=== PATIENT | female | born 1940 | race Caucasian/White ===

== ENCOUNTER → 2018-02-02 | Day surgery (SDC) | payer MEDICARE, BC ==
[2018-01-31 11:15] VITALS: BMI 42.9
[~2018-02-02] MED LIST: ALPRAZolam 0.25 MG TAB PO PRN; ALPRAZolam 0.5 MG TAB PO PRN; ASPIRIN 325 MG TAB PO SCH; ASPIRIN 325 MG TAB PO STA; ATORVASTATIN 80 MG TAB PO STA; CALCIUM CITRATE PO SCH; DILTIAZEM HCL 360 MG PO SCH; EZETIMIBE 10 MG TAB PO SCH; HEPARIN SODIUM 1,000 UN/ML (10ML VL) IV ONE; HEPARIN SODIUM 1,000 UN/ML (10ML VL) ONE; HYDROCHLOROTHIAZIDE PO SCH; IODIXANOL 320 MG/ML 100 ML INTRAARTER ONE; ISOSORBIDE MONONITRATE ER 30 MG TAB.ER.24H PO SCH; Insulin Aspart (For Pump) 100 UNIT/ML VIAL SQ-PUMP SCH; LIDOCAINE 2% INJ 20 MG/ML (20 ML MDV) ONE; LIDOCAINE 2% INJ 20 MG/ML SQ ONE; LOSARTAN PO SCH; MULTIVITAMINS, THERA 1 EACH TAB PO SCH; NITROGLYCERIN SL TABS 0.4 MG TAB SUBLINGUAL PRN; NON-FORMULARY DRUG (Omega-3 Fatty Acids/Fish Oil [Fish Oil 1,000 Mg Softgel] 1 EACH) PO SCH; NON-FORMULARY DRUG (Vitamin E [Vitamin E] 1,000 UNIT) PO SCH; PRAVASTATIN SODIUM 40 MG TAB PO SCH; RX INFO: IV CONTRAST WAS GIVEN 1 EACH MISC MISCELLANE PRN; SODIUM CHLORIDE 0.9% 1,000 ML IV SCH; SODIUM CHLORIDE 0.9% 1,000 ML in EMPTY BAG 1 BAG IV ONE; VERAPAMIL 2.5 MG/ML 2 ML AMP ONE; VITAMIN D3 PO SCH; cloNIDine HCL 0.1 MG TAB PO SCH; fentaNYL (PF) 50 MCG/ML 2 ML AMP IV ONE; fentaNYL (PF) 50 MCG/ML 2 ML AMP ONE
[2018-02-02 07:05] VITALS: TEMP 98.1
[2018-02-02 07:34] LABS: Glucose,Whole Blood 185 mg/dL (75-99)
[2018-02-02] MEDS: VERAPAMIL SYRINGE (5 MG/10 ML) INTRAARTER ONE ×2 (07:34→08:10)
[2018-02-02 07:39] LABS: Basophils # (A) 0.1 k/uL (0-0.2); Basophils % (A) 1 %; Eosinophils # (A) 0.4 k/uL (0-0.7); Eosinophils % (A) 6 %; HGB 15.3 gm/dL (11.4-16.0); Lymphocytes # (A) 2.9 k/uL (1.0-4.8); Lymphocytes % (A) 40 %; MCH 32.9 pg (25.0-35.0); MCHC 34.8 g/dL (31.0-37.0); MCV 94.7 fL (80.0-100.0); Monocytes # (A) 0.5 k/uL (0-1.0); Monocytes % (A) 7 %; Neutrophils # (A) 3.2 k/uL (1.3-7.7); Neutrophils % (A) 44 %; Platelet Count 207 k/uL (150-450); RBC 4.65 m/uL (3.80-5.40); RDW 12.6 % (11.5-15.5); WBC 7.2 k/uL (3.8-10.6)
[2018-02-02 07:51] LABS: Calcium 9.7 mg/dL (8.4-10.2); Potassium 3.9 mmol/L (3.5-5.1)
--- NOTE | 2018-02-02 09:35 | CC ---
CARDIAC CATHETERIZATION REPORT Mrs Gilman is a 77-year-old female with known history of coronary artery disease, hypertension, hyperlipidemia, diabetes mellitus, who has been complaining of progressive dyspnea on exertion. Underwent myocardial perfusion imaging that showed evidence of anterior wall ischemia. In view of that, recommendation made regarding cardiac catheterization. The procedure as well as risks and complications were discussed with the patient who is in full understanding and agreement. PROCEDURE: Patient was brought to the bolt labeler in fasting semi-sedated state after receiving fentanyl and Benadryl and achieving moderate conscious sedated state. Using Xylocaine anesthesia in the Seldinger technique, a 6-Citizen [place] sheath was introduced in the right radial artery. Left coronary angiography was performed using care 5-[place]izen [place], 3.5 bend left Syl catheter. Attempts to cannulate the right coronary artery using a 5- [place] 3.5 bend right, 4 bend right were unsuccessful. Following that, left ventriculogram was performed using a 5-[place]izen [place] tight pigtail catheter and RICKY view of the ascending aorta was performed. Following that, the attempt to cannulate the right coronary artery using a 6-[place]izen [place] Yang and subsequently a 6-[place]izen [place] MP 2 catheter that was successful in cannulating the right coronary artery. Multiple images of the coronary artery including hemiaxial views were obtained. Following that, the catheter and sheaths were removed. Hemostasis was obtained with deployment of a TR band. There was no immediate complication. Patient is returned to her room in stable condition. Of note, the patient received 5000 units of intravenous heparin as well as intra - arterial verapamil. FINDINGS: FLUOROSCOPY: There was severe calcification involving the left anterior descending artery, left circumflex and the left main. LEFT MAIN: This is a short size vessel bifurcating in left circumflex and left anterior descending artery. The left main coronary artery has no evidence of high-grade stenosis. LEFT ANTERIOR DESCENDING ARTERY: This is a large-sized vessel reaching to the apex with a wraparound apex segment giving rise to a moderately sized diagonal branch. After the takeoff of the diagonal branch, there is an eccentric 30% to 40% plaque. The rest of the vessel has no high-grade stenosis LEFT CIRCUMFLEX: This is a large codominant vessel, bifurcating distally in PDA and posterolateral segment and branches. The left circumflex has no evidence of high-grade stenosis RIGHT CORONARY ARTERY: This is a moderate-sized codominant vessel bifurcating distally PDA and posterolateral segments and branches. The right coronary artery in the mid segment has a 30% plaque as well as another plaque in the proximal segment. The rest of the vessel has no high-grade stenosis. LEFT VENTRICULOGRAM: Left ventriculogram is performed in 30-degree MISTRY view and revealed normal left ventricular size and systolic function. Ejection fraction is 60%. There was no significant mitral regurgitation. AORTOGRAM: Aortogram was performed in the RICKY view and revealed a tricuspid aortic valve with no significant aortic regurgitation. CONCLUSION: 1. Calcified coronary arteries. 2. Mild disease involving the left anterior descending artery and the right coronary artery. 3. Codominant system. RECOMMENDATION: In view of finding anatomy, I recommend continue medical therapy with aggressive coronary risk modifications that have been initiated. Those findings and recommendation were discussed with the patient and her family who are in full understanding and agreement. Duration of procedure 55 minutes. ADIEL / DEJAH: [id number] / MTDD
--- NOTE | 2018-02-02 09:37 | LTR ---
February 02, 2018 Re: Reba Gilman Dear Dr. Jhaveri: I had the opportunity to perform cardiac catheterization on Mrs. Gilman at [facility] on the and a full copy of the procedure note will be forwarded to you. In brief, she was found to have mild coronary artery disease involving the LAD and the right coronary artery and in view of that, I have recommended continued medical therapy with aggressive coronary risk modifications that have been initiated. Thank you again for allowing me the opportunity to participate in her care. Please feel free to call for any questions. Sincerely yours, MD ALEJO TrinidadL / IDALMISN: [id number] /
[2018-02-02 10:01] VITALS: PULSE 68; RESP 18
[2018-02-02 11:46] VITALS: BP 148/67
== END | disposition home or self-care (01) ==
LOC: CATHCVL 06:29
PROVIDERS: ATTEND Internal Medicine Interventional Cardiology
DX: I25.10 Atherosclerotic heart disease of native coronary artery without angina pectoris (principal); I25.84 Coronary atherosclerosis due to calcified coronary lesion; I10 Essential (primary) hypertension; E78.2 Mixed hyperlipidemia; E11.9 Type 2 diabetes mellitus without complications; Z79.4 Long term (current) use of insulin; Z96.41 Presence of insulin pump (external) (internal); Z82.49 Family history of ischemic heart disease and other diseases of the circulatory system; Z79.82 Long term (current) use of aspirin; Z79.899 Other long term (current) drug therapy; Z88.0 Allergy status to penicillin; Z88.8 Allergy status to other drugs, medicaments and biological substances
CPT/HCPCS: 93458; 93567; 80048; 85025; C1894; C1769; J2001; Q9967; J3010; J1644

== ENCOUNTER 2023-11-30 20:48 | Inpatient (IN) | payer MEDICARE, BC ==
--- NOTE | 2023-11-30 22:10 | ED ---
Arrhythmia/Palpitations HPI - General Chief Complaint: Arrhythmia/Palpitations Stated Complaint: Afib Time Seen by Provider: 11/30/23 21:07 Source: EMS Mode of arrival: EMS Limitations: no limitations - History of Present Illness Initial Comments: 82-year-old female presents emergency department as a transfer from [facility]. States that she went into the facility there for shortness of breath. She has had increased weight gain and lower extremity swelling. She called her client engagement specialist Dr. Heredia who had increased her hydrochlorothiazide. States she has been taking the higher dose for the past 2 weeks but continues to be short of breath. She also reports that she felt very weak and chilled. At [facility] they found that the patient had pulmonary vascular congestion on her chest x- ray. They gave her a dose of Lasix and Solu-Medrol. An EKG possibly demonstrated A-fib however the patient converted while at their facility according to the transferring physician. Patient transferred here for cardiology. Upon evaluation the patient states she has urinated almost 2 L. She denies any chest pain. No cough. No other alleviating, precipitating or modifying factors - Related Data Home Medications Medication Instructions Recorded Confirmed Ezetimibe 10 mg PO DAILY 01/31/18 11/30/23 Insulin Aspart (For Pump) [NovoLOG 0.01 unit SQ-PUMP CONTINUOUS 01/31/18 11/30/23 (For Pump)] Isosorbide Mononitrate ER [Imdur] 30 mg PO DAILY 01/31/18 11/30/23 Pravastatin Sodium [Pravachol] 40 mg PO HS 01/31/18 11/30/23 dilTIAZem HCL [dilTIAZem HCL 24Hr 360 mg PO DAILY 01/31/18 11/30/23 ER (LA)] Acetaminophen [Tylenol 8 Hour] 650 mg PO Q8H PRN 11/30/23 11/30/23 Aspirin EC [Ecotrin Low Dose] 81 mg PO HS 11/30/23 11/30/23 Losartan Potassium 100 mg PO DAILY 11/30/23 11/30/23 hydrALAZINE HCL [Apresoline] 100 mg PO TID 11/30/23 11/30/23 Previous Rx's Medication Instructions Recorded Furosemide [Lasix] 60 mg PO DAILY #50 tablet 12/04/23 cloNIDine HCL [Catapres] 0.2 mg PO BID #60 tablet 12/04/23 Allergies Allergy/AdvReac Type Severity Reaction Status Date / Time Penicillins Allergy Rash/Hives Verified 11/30/23 22:06 nifedipine [From Procardia] AdvReac Nausea and Verified 11/30/23 22:06 headaches Review of Systems ROS Statement: Those systems with pertinent positive or pertinent negative responses have been documented in the HPI. ROS Other: All systems not noted in ROS Statement are negative. Past Medical History Past Medical History: Diabetes Mellitus, Hyperlipidemia, Hypertension, O steoarthritis (OA), Sleep Apnea/CPAP/BIPAP Additional Past Medical History / Comment(s): pt has cpap History of Any Multi-Drug Resistant Organisms: None Reported Past Surgical History: Cholecystectomy, Heart Catheterization, Joint Replacement Additional Past Surgical History / Comment(s): yary knee replacement, cytocele and rectocele repair, yary carpal tunnel, rt shoulder surgery Past Anesthesia/Blood Transfusion Reactions: Motion Sickness, Postoperative Nausea & Vomiting (PONV) Past Psychological History: No Psychological Hx Reported Past Alcohol Use History: None Reported Past Drug Use History: None Reported - Past Family History Mother Family Medical History: No Reported History General Exam Limitations: no limitations General appearance: alert, in no apparent distress Head exam: Present: atraumatic, normocephalic, normal inspection Eye exam: Present: normal appearance, PERRL, EOMI. Absent: scleral icterus, conjunctival injection, periorbital swelling ENT exam: Present: normal exam, mucous membranes moist Neck exam: Present: normal inspection. Absent: tenderness, meningismus, lymphadenopathy Respiratory exam: Present: decreased breath sounds. Absent: respiratory distress, wheezes, rales, rhonchi, stridor Cardiovascular Exam: Present: regular rate, normal rhythm, normal heart sounds. Absent: systolic murmur, diastolic murmur, rubs, gallop, clicks GI/Abdominal exam: Present: soft, normal bowel sounds. Absent: distended, tenderness, guarding, rebound, rigid Extremities exam: Present: full ROM, normal capillary refill, pedal edema. Absent: tenderness, joint swelling, calf tenderness Back exam: Present: normal inspection Neurological exam: Present: alert, oriented X3, CN II-XII intact Psychiatric exam: Present: normal affect, normal mood Skin exam: Present: warm, dry, intact, normal color. Absent: rash Course Vital Signs 11/30/23 11/30/23 11/30/23 20:51 21:12 21:30 Temperature 98.2 F Pulse Rate 80 75 Pulse Rate [ 80 Explosive Operator Supervisor ] Respiratory 18 19 Rate Blood Pressure 203/71 187/109 Blood Pressure [Right Arm] O2 Sat by Pulse 97 97 Oximetry 11/30/23 11/30/23 11/30/23 22:11 23:10 23:57 Temperature 98.2 F Pulse Rate 79 76 71 Pulse Rate [ Explosive Operator Supervisor ] Respiratory 21 16 16 Rate Blood Pressure 199/75 167/78 170/66 Blood Pressure [Right Arm] O2 Sat by Pulse 97 98 97 Oximetry 12/01/23 12/01/23 12/01/23 01:49 04:04 05:43 Temperature 98.1 F Pulse Rate 69 69 71 Pulse Rate [ Explosive Operator Supervisor ] Respiratory 16 16 16 Rate Blood Pressure 148/76 151/71 151/71 Blood Pressure [Right Arm] O2 Sat by Pulse 96 96 95 Oximetry 12/01/23 12/01/23 12/01/23 07:59 14:19 15:58 Temperature 98.4 F 98.2 F Pulse Rate 64 Pulse Rate [ 80 67 Explosive Operator Supervisor ] Respiratory 16 16 18 Rate Blood Pressure 135/59 Blood Pressure 149/69 119/45 [Right Arm] O2 Sat by Pulse 96 96 97 Oximetry 12/01/23 20:53 Temperature 98.2 F Pulse Rate Pulse Rate [ 72 Explosive Operator Supervisor ] Respiratory 16 Rate Blood Pressure Blood Pressure 143/55 [Right Arm] O2 Sat by Pulse 96 Oximetry Medical Decision Making - Medical Decision Making Was pt. sent in by a medical professional or institution (, PA, RAVELER, urgent care, hospital, or usp...) When possible be specific @ -[facility] Did you speak to anyone other than the patient for history (EMS, parent, family, police, friend...)? What history was obtained from this source @ -EMS Did you review nursing and triage notes (agree or disagree)? Why? @ -I reviewed and agree with nursing and triage notes Were old charts reviewed (outside hosp., previous admission, EMS record, old EKG, old radiological studies, urgent care reports/EKG's, usp records)? Report findings @ -I reviewed patients chart from [facility] Differential Diagnosis (chest pain, altered mental status, abdominal pain women, abdominal pain men, vaginal bleeding, weakness, fever, dyspnea, syncope, headache, dizziness, GI bleed, back pain, seizure, CVA, palpatations, mental health, musculoskeletal)? @ -Differential Dyspnea: Coronary syndrome, arrhythmia, tamponade, asthma, COPD, pulmonary embolism, pneumonia, pneumothorax, pulmonary effusion, anaphylaxis, diabetic ketoacidosis, flailed chest, pulmonary contusion, diaphragmatic rupture, anemia, neuromuscular, this is not meant to be an all-inclusive list. EKG interpreted by me (3pts min.). @ -Yes and demonstrates sinus rhythm with a rate of 81. PA interval 213. QRS 109. QTc of 353. No acute ST segment elevations or depressions X-rays interpreted by me (1pt min.). @ -Completed at outside facility CT interpreted by me (1pt min.). @ -None done U/S interpreted by me (1pt. min.). @ -None done What testing was considered but not performed or refused? (CT, X-rays, U/S, labs)? Why? @ -None What meds were considered but not given or refused? Why? @ -None Did you discuss the management of the patient with other professionals (professionals i.e. , PA, RAVELER, lab, RT, psych nurse, social services assistant, agronomy teacher, teacher, unarmed security officer, patient case coordinator)? Give summary @ -Dr. Stevens for admission Was smoking cessation discussed for >3mins.? @ -No Was critical care preformed (if so, how long)? @ -No Were there social determinants of health that impacted care today? How? (Homelessness, low income, unemployed, alcoholism, drug addiction, transportation, low edu. Level, literacy, decrease access to med. care, nursing home, rehab)? @ -No Was there de-escalation of care discussed even if they declined (Discuss DNR or withdrawal of care, Hospice)? DNR status @ -No What co-morbidities impacted this encounter? (DM, HTN, Smoking, COPD, CAD, Cancer, CVA, ARF, Chemo, Hep., AIDS, mental health diagnosis, sleep apnea, morbid obesity)? @ -chf Was patient admitted / discharged? Hospital course, mention meds given and route, prescriptions, significant lab abnormalities, going to OR and other pertinent info. @ -Upon arrival patient was placed into room 11. Thorough history and physical exam was performed. I did review the patient's transfer packet. New laboratory studies are conducted. Patient will be admitted with cardiology consultation. Spoke with Dr. Stevens for admission Undiagnosed new problem with uncertain prognosis? @ -No Drug Therapy requiring intensive monitoring for toxicity (Heparin, Nitro, Insulin, Cardizem)? @ -No Were any procedures done? @ -No Diagnosis/symptom? @ -acute respiratory insuff, aechf, possible afib - currently NSR Acute, or Chronic, or Acute on Chronic? @ -acute Uncomplicated (without systemic symptoms) or Complicated (systemic symptoms)? @ -complicated Side effects of treatment? @ -No Exacerbation, Progression, or Severe Exacerbation? @ -No Poses a threat to life or bodily function? How? (Chest pain, [place], [place], pneumonia, PE, COPD, DKA, ARF, appy, cholecystitis, CVA, Diverticulitis, Homicidal, Suicidal, threat to staff... and all critical care pts) @ -No - Lab Data Result diagrams: 12/01/23 03:28 12/04/23 04:46 Lab Results 11/30/23 11/30/23 11/30/23 Range/Units 22:00 22:00 22:00 WBC 8.8 (3.8-10.6) k/uL RBC 4.96 (3.80-5.40) m/uL Hgb 16.9 H (11.4-16.0) gm/dL Hct 48.3 H (34.0-46.0) % MCV 97.3 (80.0-100.0) fL MCH 34.1 (25.0-35.0) pg MCHC 35.1 (31.0-37.0) g/dL RDW 12.3 (11.5-15.5) % Plt Count 202 (150-450) k/uL MPV 7.9 Neutrophils % 88 % Lymphocytes % 10 % Monocytes % 2 % Eosinophils % 0 % Basophils % 0 % Neutrophils # 7.7 (1.3-7.7) k/uL Lymphocytes # 0.8 L (1.0-4.8) k/uL Monocytes # 0.1 (0-1.0) k/uL Eosinophils # 0.0 (0-0.7) k/uL Basophils # 0.0 (0-0.2) k/uL Sodium 130 L (137-145) mmol/L Potassium 3.5 (3.5-5.1) mmol/L Chloride 98 (98-107) mmol/L Carbon Dioxide 20 L (22-30) mmol/L Anion Gap 12 mmol/L BUN 13 (7-17) mg/dL Creatinine 0.57 (0.52-1.04) mg/dL Est GFR (CKD-EPI)AfAm >90 (>60 ml/min/1.73 sqM) Est GFR (CKD-EPI)NonAf 88 (>60 ml/min/1.73 sqM) Glucose 183 H (74-99) mg/dL POC Glucose (mg/dL) (70-110) mg/dL POC Glu Truck Shop Mechanic ID Calcium 10.3 H (8.4-10.2) mg/dL Magnesium 1.6 (1.6-2.3) mg/dL Total Bilirubin 1.0 (0.2-1.3) mg/dL AST 40 H (14-36) U/L ALT 34 (4-34) U/L Alkaline Phosphatase 79 (38-126) U/L Troponin I 0.020 (0.000-0.034) ng/mL NT-Pro-B Natriuret Pep 409 pg/mL Total Protein 8.0 (6.3-8.2) g/dL Albumin 4.8 (3.5-5.0) g/dL 12/01/23 12/01/23 12/01/23 Range/Units 01:06 03:28 03:28 WBC 6.6 (3.8-10.6) k/uL RBC 4.80 (3.80-5.40) m/uL Hgb 15.8 (11.4-16.0) gm/dL Hct 47.1 H (34.0-46.0) % MCV 98.1 (80.0-100.0) fL MCH 32.9 (25.0-35.0) pg MCHC 33.6 (31.0-37.0) g/dL RDW 12.2 (11.5-15.5) % Plt Count 191 (150-450) k/uL MPV 7.4 Neutrophils % 79 % Lymphocytes % 19 % Monocytes % 1 % Eosinophils % 0 % Basophils % 0 % Neutrophils # 5.2 (1.3-7.7) k/uL Lymphocytes # 1.3 (1.0-4.8) k/uL Monocytes # 0.1 (0-1.0) k/uL Eosinophils # 0.0 (0-0.7) k/uL Basophils # 0.0 (0-0.2) k/uL Sodium (137-145) mmol/L Potassium (3.5-5.1) mmol/L Chloride (98-107) mmol/L Carbon Dioxide (22-30) mmol/L Anion Gap mmol/L BUN (7-17) mg/dL Creatinine (0.52-1.04) mg/dL Est GFR (CKD-EPI)AfAm (>60 ml/min/1.73 sqM) Est GFR (CKD-EPI)NonAf (>60 ml/min/1.73 sqM) Glucose (74-99) mg/dL POC Glucose (mg/dL) (70-110) mg/dL POC Glu Truck Shop Mechanic ID Calcium (8.4-10.2) mg/dL Magnesium (1.6-2.3) mg/dL Total Bilirubin (0.2-1.3) mg/dL AST (14-36) U/L ALT (4-34) U/L Alkaline Phosphatase (38-126) U/L Troponin I 0.021 0.020 (0.000-0.034) ng/mL NT-Pro-B Natriuret Pep pg/mL Total Protein (6.3-8.2) g/dL Albumin (3.5-5.0) g/dL 12/01/23 12/01/23 Range/Units 03:28 09:03 WBC (3.8-10.6) k/uL RBC (3.80-5.40) m/uL Hgb (11.4-16.0) gm/dL Hct (34.0-46.0) % MCV (80.0-100.0) fL MCH (25.0-35.0) pg MCHC (31.0-37.0) g/dL RDW (11.5-15.5) % Plt Count (150-450) k/uL MPV Neutrophils % % Lymphocytes % % Monocytes % % Eosinophils % % Basophils % % Neutrophils # (1.3-7.7) k/uL Lymphocytes # (1.0-4.8) k/uL Monocytes # (0-1.0) k/uL Eosinophils # (0-0.7) k/uL Basophils # (0-0.2) k/uL Sodium 129 L (137-145) mmol/L Potassium 3.6 (3.5-5.1) mmol/L Chloride 98 (98-107) mmol/L Carbon Dioxide 24 (22-30) mmol/L Anion Gap 7 mmol/L BUN 15 (7-17) mg/dL Creatinine 0.60 (0.52-1.04) mg/dL Est GFR (CKD-EPI)AfAm >90 (>60 ml/min/1.73 sqM) Est GFR (CKD-EPI)NonAf 87 (>60 ml/min/1.73 sqM) Glucose 210 H (74-99) mg/dL POC Glucose (mg/dL) 195 H (70-110) mg/dL POC Glu Truck Shop Mechanic ID [place] Calcium 10.1 (8.4-10.2) mg/dL Magnesium (1.6-2.3) mg/dL Total Bilirubin (0.2-1.3) mg/dL AST (14-36) U/L ALT (4-34) U/L Alkaline Phosphatase (38-126) U/L Troponin I (0.000-0.034) ng/mL NT-Pro-B Natriuret Pep pg/mL Total Protein (6.3-8.2) g/dL Albumin (3.5-5.0) g/dL Disposition Clinical Impression: CHF exacerbation, Hyponatremia, Hypertension Disposition: ADMITTED IP TO THIS HOSP Condition: Good Is patient prescribed a controlled substance at d/c from ED?: No Time of Disposition: 22:40 Decision to Admit Reason: Admit from EC Decision Date: 11/30/23 Decision Time: 22:40
[2023-11-30 22:11] LABS: Basophils % (A) 0 %; Eosinophils % (A) 0 %; HCT 48.3 % (34.0-46.0); HGB 16.9 gm/dL (11.4-16.0); Lymphocytes # (A) 0.8 k/uL (1.0-4.8); Lymphocytes % (A) 10 %; MCH 34.1 pg (25.0-35.0); MCHC 35.1 g/dL (31.0-37.0); MCV 97.3 fL (80.0-100.0); Mean Platelet Volume 7.9; Monocytes # (A) 0.1 k/uL (0-1.0); Monocytes % (A) 2 %; Neutrophils # (A) 7.7 k/uL (1.3-7.7); Neutrophils % (A) 88 %; Platelet Count 202 k/uL (150-450); RBC 4.96 m/uL (3.80-5.40); RDW 12.3 % (11.5-15.5); WBC 8.8 k/uL (3.8-10.6)
[2023-11-30 22:20] LABS: ALT 34 U/L (4-34); African American GFR (CKD) >90 (>60 ml/min/1.73 sqM); Albumin 4.8 g/dL (3.5-5.0); Anion Gap 12 mmol/L; Blood Urea Nitrogen 13 mg/dL (7-17); Calcium 10.3 mg/dL (8.4-10.2); Carbon Dioxide 20 mmol/L (22-30); Chloride 98 mmol/L (98-107); Glucose 183 mg/dL (74-99); Non-African American GFR(CKD) 88 (>60 ml/min/1.73 sqM); Sodium 130 mmol/L (137-145)
[2023-11-30 22:21] LABS: AST 40 U/L (14-36); Alkaline Phosphatase 79 U/L (38-126); Magnesium 1.6 mg/dL (1.6-2.3); Potassium 3.5 mmol/L (3.5-5.1)
[2023-11-30 22:29] LABS: NT-Pro-B-Type Natriuretic Pept 409 pg/mL
[2023-11-30] MEDS ORDERED: NALOXONE 0.4 MG/ML 1 ML VIAL IV PRN (22:42)
[2023-11-30] MEDS ORDERED: ACETAMINOPHEN TAB 325 MG TAB PO PRN (22:49)
[2023-11-30] MEDS: Insulin Aspart (For Pump) 100 UNIT/ML VIAL SQ-PUMP SCH (23:12)
[2023-11-30] MEDS: hydrALAZINE HCL 50 MG TAB PO SCH (23:15)
[2023-11-30] MEDS: PRAVASTATIN SODIUM 40 MG TAB PO SCH (23:15)
[2023-11-30] MEDS: cloNIDine HCL 0.1 MG TAB PO SCH (23:15)
[2023-11-30] MEDS: ASPIRIN 81 MG PO SCH (23:16)
[2023-12-01 03:55] LABS: African American GFR (CKD) >90 (>60 ml/min/1.73 sqM); Anion Gap 7 mmol/L; Blood Urea Nitrogen 15 mg/dL (7-17); Calcium 10.1 mg/dL (8.4-10.2); Carbon Dioxide 24 mmol/L (22-30); Chloride 98 mmol/L (98-107); Glucose 210 mg/dL (74-99); Non-African American GFR(CKD) 87 (>60 ml/min/1.73 sqM); Potassium 3.6 mmol/L (3.5-5.1); Sodium 129 mmol/L (137-145)
[2023-12-01 03:58] LABS: Basophils % (A) 0 %; Eosinophils % (A) 0 %; HCT 47.1 % (34.0-46.0); HGB 15.8 gm/dL (11.4-16.0); Lymphocytes # (A) 1.3 k/uL (1.0-4.8); Lymphocytes % (A) 19 %; MCH 32.9 pg (25.0-35.0); MCHC 33.6 g/dL (31.0-37.0); MCV 98.1 fL (80.0-100.0); Mean Platelet Volume 7.4; Monocytes # (A) 0.1 k/uL (0-1.0); Monocytes % (A) 1 %; Neutrophils # (A) 5.2 k/uL (1.3-7.7); Neutrophils % (A) 79 %; Platelet Count 191 k/uL (150-450); RDW 12.2 % (11.5-15.5); WBC 6.6 k/uL (3.8-10.6)
[2023-12-01] MEDS: ISOSORBIDE MONONITRATE ER 30 MG TAB.ER.24H PO SCH (08:27)
[2023-12-01] MEDS: DILTIAZEM CD 180 MG CAP.ER.24H PO SCH (08:27)
[2023-12-01] MEDS: hydrALAZINE HCL 50 MG TAB PO SCH ×3 (08:27→20:55)
[2023-12-01] MEDS: cloNIDine HCL 0.1 MG TAB PO SCH ×2 (08:28→20:55)
[2023-12-01] MEDS: FUROSEMIDE 10 MG/ML 10 ML VIAL IV SCH ×2 (08:28→20:55)
[2023-12-01] MEDS: EZETIMIBE 10 MG TAB PO SCH (08:28)
[2023-12-01] MEDS: LOSARTAN 50 MG TAB PO SCH (08:28)
[2023-12-01 09:05] LABS: Glucose,Whole Blood 195 mg/dL (70-110)
[2023-12-01] MEDS: ENOXAPARIN 40 MG/0.4 ML SYRINGE SQ SCH (11:23)
--- NOTE | 2023-12-01 11:29 | P.CRDCN ---
History of Present Illness Consult date: 12/01/23 Consult reason: congestive heart failure (Acute exacerbation) History of present illness: History of present illness: This is an 89-year-old female patient of Dr. Heredia with past medical history of coronary artery disease, hypertension, subclavian artery stenosis, hyperlipidemia, diabetes mellitus type 2, obstructive sleep apnea on CPAP. We have been asked to evaluate the patient for acute exacerbation of CHF. Patient is seen today in the emergency center waiting for a bed on the observation unit. Patient initially presented to [facility] for shortness of breath with weight gain and lower extremity edema. She states that she had been in contact with Dr. Heredia and he had increased her hydrochlorothiazide 2 weeks ago but she has not had any significant improvement and also feels like she is getting worse with shortness of breath. She states she has gained 11 pounds. At [facility], she was given IV Lasix and IV Solu-Medrol. Patient states that she did have a significant amount of urination and helped some with her breathing. She states she has a little bit of a cough. No fever or chills. Chest x-ray showed cardiomegaly and CHF. EKG was a sinus rhythm. EKG sinus rhythm CBC is unremarkable. Sodium 129. Potassium 3.6, BUN 15 creatinine 0.6. Blood sugar 210. Troponin negative x 3. proBNP 409. Home cardiac medications: Aspirin 81 mg daily, Catapres 0.1 mg twice daily, Cardizem ER 360 mg daily,, Zetia 10 mg daily, hydralazine 100 mg 3 times daily, hydrochlorothiazide 50 mg daily, Imdur 30 mg daily, losartan 100 mg daily, pravastatin 40 mg at bedtime Cardiac catheterization performed 02/02 2018 revealed calcified coronary arteries with mild disease in the LAD and RCA. Echocardiogram performed on 05/21/2022 revealed EF of 52%, mild to moderate TR, mild , mild to moderate MR, RVSP 53 mmHg. Lexiscan stress test performed 05/21/2022 revealed EF 58% and normal. Review Of Systems: At the time of my evaluation: Constitutional: No fever, no chills. No weakness, fatigue or lethargy. + weight gain. EENT: No headache. No dizziness. Lungs: + shortness of breath, + cough, no sputum production. No wheezing. Cardiovascular: No chest pain, + lower extremity edema. No palpitations. No paroxysmal nocturnal dyspnea. No orthopnea. No lightheadedness or dizziness. No syncopal episodes. Abdominal: No abdominal pain. No nausea, vomiting. No diarrhea. No constipation. No bloody or tarry stools. Genitourinary: No dysuria.. No urinary retention. Musculoskeletal: No myalgias. No muscle weakness, no frequent falls. Integumentary: No wounds. No rash. No unusual bruising. Neurologic: No aphasia. No facial droop. No change in mentation. Physical examination: Gen: This is a morbidly obese 89-year-old female appears to be in no acute distress VS: reviewed blood pressure 151/71, heart rate in the 60s to 70s, pulse ox 95% on 2 L nasal cannula. HEENT: Head is atraumatic, normocephalic. Pupils equal, round. Sclerae is anicteric. NECK: Supple. No JVD. . LUNGS: Diminished breath sounds. No intercostal retractions. HEART: Regular rate and rhythm. 2/6 sytolic murmur. ABDOMEN: Soft No tenderness. EXTREMITIES: 3+ pedal edema. No calf tenderness. NEUROLOGICAL: Patient is awake, alert and oriented x3. Assessment: Acute diastolic heart failure Hyponatremia History of coronary artery disease Hypertension Subclavian artery stenosis on medical management status post evaluation by Dr. Bustos Hyperlipidemia Diabetes mellitus type 2 Obstructive sleep apnea Valvular heart disease with mild AAS, mild to moderate MR, mild to moderate TR Plan: Resume patient's home cardiac medications Continue Lasix IV 60 mg twice daily Monitor SHELLY, daily weights, electrolytes and renal function Obtain 2-D echocardiogram and Doppler study to assess cardiac structure and function Further recommendations to follow based upon clinical course Thank you kindly for this consultation. Nurse practitioner note has been reviewed, I agree with documented findings and plan of care. Patient was seen and examined. Past Medical History Past Medical History: Diabetes Mellitus, Hyperlipidemia, Hypertension, Osteoarthritis (OA), Sleep Apnea/CPAP/BIPAP Additional Past Medical History / Comment(s): pt has cpap History of Any Multi-Drug Resistant Organisms: None Reported Past Surgical History: Cholecystectomy, Heart Catheterization, Joint Replacement Additional Past Surgical History / Comment(s): yary knee replacement, cytocele and rectocele repair, yary carpal tunnel, rt shoulder surgery Past Anesthesia/Blood Transfusion Reactions: Motion Sickness, Postoperative Nausea & Vomiting (PONV) Past Psychological History: No Psychological Hx Reported Past Alcohol Use History: None Reported Past Drug Use History: None Reported - Past Family History Mother Family Medical History: No Reported History Medications and Allergies Home Medications Medication Instructions Recorded Confirmed Type Ezetimibe 10 mg PO DAILY 01/31/18 11/30/23 History Insulin Aspart (For Pump) [NovoLOG 0.01 unit SQ-PUMP CONTINUOUS 01/31/18 11/30/23 History (For Pump)] Isosorbide Mononitrate ER [Imdur] 30 mg PO DAILY 01/31/18 11/30/23 History Pravastatin Sodium [Pravachol] 40 mg PO HS 01/31/18 11/30/23 History cloNIDine HCL [Catapres] 0.1 mg PO BID 01/31/18 11/30/23 History dilTIAZem HCL [Diltiazem ER] 360 mg PO DAILY 01/31/18 11/30/23 History Acetaminophen [Tylenol 8 Hour] 650 mg PO Q8H PRN 11/30/23 11/30/23 History Aspirin EC [Ecotrin Low Dose] 81 mg PO HS 11/30/23 11/30/23 History Losartan Potassium 100 mg PO DAILY 11/30/23 11/30/23 History hydrALAZINE HCL [Apresoline] 100 mg PO TID 11/30/23 11/30/23 History hydroCHLOROthiazide [Hydrodiuril] 50 mg PO DAILY 11/30/23 11/30/23 History Allergies Allergy/AdvReac Type Severity Reaction Status Date / Time Penicillins Allergy Rash/Hives Verified 11/30/23 22:06 nifedipine [From Procardia] AdvReac Nausea and Verified 11/30/23 22:06 headaches Physical Exam Vitals: Vital Signs Temp Pulse Pulse Resp BP Pulse Ox 12/01/23 05:43 98.1 F 71 16 151/71 95 12/01/23 04:04 69 16 151/71 96 12/01/23 01:49 69 16 148/76 96 11/30/23 23:57 71 16 170/66 97 11/30/23 23:10 98.2 F 76 16 167/78 98 11/30/23 22:11 79 21 199/75 97 11/30/23 21:30 75 19 187/109 97 11/30/23 21:12 80 11/30/23 20:51 98.2 F 80 18 203/71 97 Intake and Output 11/30/23 12/01/23 12/01/23 22:59 06:59 14:59 Output Total 950 Balance -950 Output: Urine 950 Uretheral (Call) 950 Other: Weight 123.831 kg Results 12/01/23 03:28 12/01/23 03:28 Cardiac Enzymes 11/30/23 11/30/23 12/01/23 Range/Units 22:00 22:00 01:06 AST 40 H (14-36) U/L Troponin I 0.020 0.021 (0.000-0.034) ng/mL 12/01/23 Range/Units 03:28 AST (14-36) U/L Troponin I 0.020 (0.000-0.034) ng/mL CBC 11/30/23 12/01/23 Range/Units 22:00 03:28 WBC 8.8 6.6 (3.8-10.6) k/uL RBC 4.96 4.80 (3.80-5.40) m/uL Hgb 16.9 H 15.8 (11.4-16.0) gm/dL Hct 48.3 H 47.1 H (34.0-46.0) % Plt Count 202 191 (150-450) k/uL Comprehensive Metabolic Panel 11/30/23 12/01/23 Range/Units 22:00 03:28 Sodium 130 L 129 L (137-145) mmol/L Potassium 3.5 3.6 (3.5-5.1) mmol/L Chloride 98 98 (98-107) mmol/L Carbon Dioxide 20 L 24 (22-30) mmol/L BUN 13 15 (7-17) mg/dL Creatinine 0.57 0.60 (0.52-1.04) mg/dL Glucose 183 H 210 H (74-99) mg/dL Calcium 10.3 H 10.1 (8.4-10.2) mg/dL AST 40 H (14-36) U/L ALT 34 (4-34) U/L Alkaline Phosphatase 79 (38-126) U/L Total Protein 8.0 (6.3-8.2) g/dL Albumin 4.8 (3.5-5.0) g/dL Current Medications Generic Name Dose Route Start Last Admin Trade Name Freq PRN Reason Stop Dose Admin Acetaminophen 650 mg 11/30/23 22:49 Acetaminophen Tab 325 Mg Tab PO Q8H PRN Pain Aspirin 81 mg 11/30/23 23:00 11/30/23 23:16 Aspirin 81 Mg PO 81 mg HS SANDOVAL Administration Clonidine 0.1 mg 11/30/23 23:00 11/30/23 23:15 Clonidine Hcl 0.1 Mg Tab PO 0.1 mg BID SANDOVAL Administration Diltiazem HCl 360 mg 12/01/23 09:00 Diltiazem Cd 180 Mg Cap.Er.24h PO DAILY SANDOVAL Ezetimibe 10 mg 12/01/23 09:00 Ezetimibe 10 Mg Tab PO DAILY [facility] Furosemide 60 mg 12/01/23 09:00 Furosemide 10 Mg/Ml 10 Ml Vial IV BID SANDOVAL Hydralazine HCl 100 mg 11/30/23 23:00 11/30/23 23:15 Hydralazine Hcl 50 Mg Tab PO 100 mg TID SANDOVAL Administration Insulin Aspart 0.01 unit 11/30/23 23:00 11/30/23 23:12 Insulin Aspart (For Pump) 100 Unit/Ml Vial SQ-PUMP Not Given CONTINUOUS [facility] Isosorbide Mononitrate 30 mg 12/01/23 09:00 Isosorbide Mononitrate Er 30 Mg Tab.Er.24h PO DAILY [facility] Losartan Potassium 100 mg 12/01/23 09:00 Losartan 50 Mg Tab PO DAILY [facility] Naloxone HCl 0.2 mg 11/30/23 22:42 Naloxone 0.4 Mg/Ml 1 Ml Vial IV Q2M PRN Opioid Reversal Pravastatin Sodium 40 mg 11/30/23 23:00 11/30/23 23:15 Pravastatin Sodium 40 Mg Tab PO 40 mg HS SANDOVAL Administration Intake and Output 11/30/23 12/01/23 12/01/23 22:59 06:59 14:59 Output Total 950 Balance -950 Output: Urine 950 Uretheral (Call) 950 Other: Weight 123.831 kg 12/01/23 03:28 12/01/23 03:28
--- NOTE | 2023-12-01 13:00 | CA ---
Transthoracic Echo Report Name: Reba Gilman Age: 82 Gender: F : 1940 Exam Date: 12/01/2023 10:53 Exam Location: [facility] Ht (in): 66 Wt (lb): 273 Ordering Physician: Vivian Schofield Attending/Referring Phys: [id number], Chandu Bolt Header Procedure CPT: Indications: LVF, Cardiac Hx: Technical Quality: Technically difficult study Contrast 1: Definity Total Dose (mL): 2 Contrast 2: Total Dose (mL): MEASUREMENTS (Male / Female) Normal Values 2D ECHO LV Diastolic Diameter PLAX 5.0 cm 4.2 - 5.9 / 3.9 - 5.3 cm LV Systolic Diameter PLAX 3.8 cm IVS Diastolic Thickness 1.4 cm 0.6 - 1.0 / 0.6 - 0.9 cm LVPW Diastolic Thickness 1.4 cm 0.6 - 1.0 / 0.6 - 0.9 cm LV Relative Wall Thickness 0.6 RV Internal Dim ED PLAX 3.1 cm LVOT Diameter 1.9 cm LA Volume 67.8 cm??? 18 - 58 / 22 - 52 cm??? LA Volume Index 27.5 cm???/m??? 16 - 28 cm???/m??? M-MODE Aortic Root Diameter MM 3.3 cm LA Systolic Diameter MM 4.4 cm LA Ao Ratio MM 1.3 AV Cusp Separation MM 1.6 cm DOPPLER AV Peak Velocity 196.4 cm/s AV Peak Gradient 15.4 mmHg AV Mean Velocity 140.3 cm/s AV Mean Gradient 8.6 mmHg AV Velocity Time Integral 37.4 cm LVOT Peak Velocity 88.5 cm/s LVOT Peak Gradient 3.1 mmHg LVOT Velocity Time Integral 18.8 cm LVOT Stroke Volume 54.9 cm??? LVOT Stroke Volume Index 24.0 ml/m??? LVOT Cardiac Index 1912.1 cm???/min???m??? AV Area Cont Eq vti 1.5 cm??? AV Area Cont Eq pk 1.3 cm??? MV Area PHT 2.8 cm??? Mitral E Point Velocity 85.4 cm/s Mitral A Point Velocity 118.5 cm/s Mitral E to A Ratio 0.7 MV Deceleration Time 273.0 ms MV E' Velocity 4.0 cm/s Mitral E to MV E' Ratio 21.6 TR Peak Velocity 237.2 cm/s TR Peak Gradient 22.5 mmHg Right Ventricular Systolic Press 26.5 mmHg FINDINGS Left Ventricle Moderately increased left ventricular wall thickness. Left ventricular cavity size normal. Normal left ventricular systolic function with no obvious regional wall motion abnormalities. Left ventricular ejection fraction is estimated at 55-60 %. Right Ventricle Normal right ventricular size and function. Right ventricular systolic pressure within normal limits. Right Atrium Normal right atrial size. Left Atrium Moderately increased left atrial volume. Mitral Valve Structurally normal mitral valve. Mitral valve thickened. Mild mitral annular calcification. [id number] mitral regurgitation. Aortic Valve Thickened aortic valve without stenosis. No aortic regurgitation. Tricuspid Valve Structurally normal tricuspid valve. Mild tricuspid regurgitation. Pulmonic Valve Structurally normal pulmonic valve. Pericardium No pericardial effusion. Aorta Normal size aortic root and proximal ascending aorta. CONCLUSIONS Technically difficult study for interpretation Normal on the systolic function [id number] mitral regurgitation Previewed by: Dr. Gamaliel Alexandra MD (Electronically Signed) Final Date: 01 December 2023 13:00
[2023-12-01] MEDS ORDERED: CALCIUM CARBONATE 500 MG CHEWABLE PO PRN (14:09)
[2023-12-01] MEDS ORDERED: ONDANSETRON 4 MG/2 ML VIAL IVP PRN (14:09)
[2023-12-01] MEDS ORDERED: LORazepam 0.5 MG TAB PO PRN (14:09)
[2023-12-01] MEDS ORDERED: MELATONIN 3 MG TABLET PO PRN (14:09)
[2023-12-01] MEDS ORDERED: LACTULOSE 20 GM/30 ML CUP PO PRN (14:09)
--- NOTE | 2023-12-01 14:09 | P.HPIM ---
History of Present Illness H&P Date: 12/01/23 Chief Complaint: Short of breath This is a pleasant 82-year-old patient, follows with Dr. Lottie Del Cid. Chronic stable medical conditions include diabetes, hypertension, hy perlipidemia, osteoarthritis, prior sleep apnea uses CPAP. Does use a cane and a walker at baseline. Patient is accompanied by her daughter and son in the ER. For 2 to 3 weeks patient been having episodes of feeling short of breath. Short-lived then she disappears. Last 2 days patient been having increasing shortness of breath. Slight headache. Edema. Does sleep sitting a bit upright. Feels flushed. Decreased appetite. No fever no chills. No change in bowel pattern. Initially presented to [facility]. [place] a possible CHF. Transferred down here. 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 Heredia. No cough or sputum. Review of systems: GEN.: Tired EYES: None HEENT: None NECK: None RESPIRATORY: No as above CARDIOVASCULAR: [As above GASTROINTESTINAL: None GENITOURINARY: None MUSCULOSKELETAL: Joint pains e LYMPHATICS: None HEMATOLOGICAL: None PSYCHIATRY: None NEUROLOGICAL: Denies use a cane and a walker Social history: Lives alone. Does use a cane and a walker. No smoking no alcohol Physical examination: VITAL SIGNS: 98.4, 80, 16, 149 x 69, 96% room air GENERAL: [BMI 44.1, laying in bed awake a bit tired. EYES: Pupils equal. Conjunctiva salazar l. HEENT: External appearance of nose and ears normal, oral cavity grossly normal. NECK: JVD unable to assist masses not palpable. HEART: First and second heart sounds are normal; no edema. LUNGS: Respiratory rate increased, decreased breath sounds. ABDOMEN: Soft, nontender, liver spleen not palpable, no masses palpable. PSYCH: Alert and oriented x3; mood and affect salazar l. MUSCULOSKELETAL:No Clubbing/cyanosis;muscles-grossly intact. OA NEUROLOGICAL: Cranial nerves grossly intact; no facial asymmetry, power and sensation grossly intact. LYMPHATICS: No lymph nodes palpable in the axilla and neck INVESTIGATIONS, reviewed in the clinical context: December 01, 2023: White count 6.6 hemoglobin 15.8 platelets 191 sodium 129 potassium 3.6 BUN 15 creatinine 0.60 Troponin I 0.020, 0.021, 0.020. proBNP 409 EKG tracing personally reviewed by me-normal sinus rhythm. Nonspecific ST/T wave changes. 2D echocardiogram moderate LVH. EF 55-60%. Mild to moderate-MR. Assessment plan: -Possible acute congestive heart failure exacerbation. From diastolic dysfunction EF 55 to 60% IV Lasix. Telemetry. Cardiology consulted. -Essential hypertension Catapres 0.1 mg twice daily hydrochlorothiazide hydralazine 100 mg 3 times daily. Cardizem ER. Losartan 100 mg a day -Hyperlipidemia Pravachol 40 mg nightly. 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 Questions answered. Past Medical History Past Medical History: Diabetes Mellitus, Hyperlipidemia, Hypertension, Osteoarthritis (OA), Sleep Apnea/CPAP/BIPAP Additional Past Medical History / Comment(s): pt has cpap History of Any Multi-Drug Resistant Organisms: None Reported Past Surgical History: Cholecystectomy, Heart Catheterization, Joint Replacement Additional Past Surgical History / Comment(s): yary knee replacement, cytocele and rectocele repair, yary carpal tunnel, rt shoulder surgery Past Anesthesia/Blood Transfusion Reactions: Motion Sickness, Postoperative Nausea & Vomiting (PONV) Past Psychological History: No Psychological Hx Reported Past Alcohol Use History: None Reported Past Drug Use History: None Reported - Past Family History Mother Family Medical History: No Reported History Medications and Allergies Home Medications Medication Instructions Recorded Confirmed Type Ezetimibe 10 mg PO DAILY 01/31/18 11/30/23 History Insulin Aspart (For Pump) [NovoLOG 0.01 unit SQ-PUMP CONTINUOUS 01/31/18 11/30/23 History (For Pump)] Isosorbide Mononitrate ER [Imdur] 30 mg PO DAILY 01/31/18 11/30/23 History Pravastatin Sodium [Pravachol] 40 mg PO HS 01/31/18 11/30/23 History cloNIDine HCL [Catapres] 0.1 mg PO BID 01/31/18 11/30/23 History dilTIAZem HCL [Diltiazem ER] 360 mg PO DAILY 01/31/18 11/30/23 History Acetaminophen [Tylenol 8 Hour] 650 mg PO Q8H PRN 11/30/23 11/30/23 History Aspirin EC [Ecotrin Low Dose] 81 mg PO HS 11/30/23 11/30/23 History Losartan Potassium 100 mg PO DAILY 11/30/23 11/30/23 History hydrALAZINE HCL [Apresoline] 100 mg PO TID 11/30/23 11/30/23 History hydroCHLOROthiazide [Hydrodiuril] 50 mg PO DAILY 11/30/23 11/30/23 History Allergies Allergy/AdvReac Type Severity Reaction Status Date / Time Penicillins Allergy Rash/Hives Verified 11/30/23 22:06 nifedipine [From Procardia] AdvReac Nausea and Verified 11/30/23 22:06 headaches Physical Exam Vitals: Vital Signs Temp Pulse Pulse Resp BP BP Pulse Ox 12/01/23 07:59 98.4 F 80 16 149/69 96 12/01/23 05:43 98.1 F 71 16 151/71 95 12/01/23 04:04 69 16 151/71 96 12/01/23 01:49 69 16 148/76 96 11/30/23 23:57 71 16 170/66 97 11/30/23 23:10 98.2 F 76 16 167/78 98 11/30/23 22:11 79 21 199/75 97 11/30/23 21:30 75 19 187/109 97 11/30/23 21:12 80 11/30/23 20:51 98.2 F 80 18 203/71 97 Intake and Output 11/30/23 12/01/23 12/01/23 22:59 06:59 14:59 Output Total 950 Balance -950 Output: Urine 950 Uretheral (Call) 950 Other: Voiding Method Indwelling Catheter Weight 123.831 kg Results CBC & Chem 7: 12/01/23 03:28 12/01/23 03:28 Labs: Abnormal Lab Results - Last 24 Hours (Table) 11/30/23 11/30/23 12/01/23 Range/Units 22:00 22:00 03:28 Hgb 16.9 H (11.4-16.0) gm/dL Hct 48.3 H 47.1 H (34.0-46.0) % Lymphocytes # 0.8 L (1.0-4.8) k/uL Sodium 130 L (137-145) mmol/L Carbon Dioxide 20 L (22-30) mmol/L Glucose 183 H (74-99) mg/dL POC Glucose (mg/dL) (70-110) mg/dL Calcium 10.3 H (8.4-10.2) mg/dL AST 40 H (14-36) U/L 12/01/23 12/01/23 Range/Units 03:28 09:03 Hgb (11.4-16.0) gm/dL Hct (34.0-46.0) % Lymphocytes # (1.0-4.8) k/uL Sodium 129 L (137-145) mmol/L Carbon Dioxide (22-30) mmol/L Glucose 210 H (74-99) mg/dL POC Glucose (mg/dL) 195 H (70-110) mg/dL Calcium (8.4-10.2) mg/dL AST (14-36) U/L
[2023-12-01] MEDS ORDERED: DEXTROSE 50% SYRINGE 50 ML IVP PRN ×2 (14:10)
[2023-12-01 16:59] LABS: Glucose,Whole Blood 218 mg/dL (70-110)
[2023-12-01] MEDS ORDERED: INSULIN ASPART (NovoLOG) 100 UNIT/ML VIAL SQ SCH (17:30)
[2023-12-01] MEDS: ASPIRIN 81 MG PO SCH (20:55)
[2023-12-01] MEDS: PRAVASTATIN SODIUM 40 MG TAB PO SCH (20:55)
[2023-12-01 23:18] LABS: Glucose,Whole Blood 164 mg/dL (70-110)
[2023-12-01] MEDS: Insulin Aspart (For Pump) 100 UNIT/ML VIAL SQ-PUMP SCH (23:47)
[2023-12-02 05:44] LABS: Glucose,Whole Blood 159 mg/dL (70-110)
[2023-12-02 07:09] LABS: African American GFR (CKD) >90 (>60 ml/min/1.73 sqM); Anion Gap 9 mmol/L; Blood Urea Nitrogen 25 mg/dL (7-17); Calcium 10.3 mg/dL (8.4-10.2); Carbon Dioxide 26 mmol/L (22-30); Chloride 100 mmol/L (98-107); Glucose 132 mg/dL (74-99); Non-African American GFR(CKD) 81 (>60 ml/min/1.73 sqM); Potassium 3.8 mmol/L (3.5-5.1); Sodium 135 mmol/L (137-145)
[2023-12-02] MEDS: Insulin Aspart (For Pump) 100 UNIT/ML VIAL SQ-PUMP SCH ×3 (07:50→17:22)
[2023-12-02] MEDS: EZETIMIBE 10 MG TAB PO SCH (08:11)
[2023-12-02] MEDS: cloNIDine HCL 0.1 MG TAB PO SCH ×2 (08:11→20:54)
[2023-12-02] MEDS: ENOXAPARIN 40 MG/0.4 ML SYRINGE SQ SCH (08:11)
[2023-12-02] MEDS: hydrALAZINE HCL 50 MG TAB PO SCH ×3 (08:11→20:53)
[2023-12-02] MEDS: FUROSEMIDE 10 MG/ML 10 ML VIAL IV SCH ×2 (08:11→20:53)
[2023-12-02] MEDS: ISOSORBIDE MONONITRATE ER 30 MG TAB.ER.24H PO SCH (08:11)
[2023-12-02] MEDS: LOSARTAN 50 MG TAB PO SCH (08:11)
--- NOTE | 2023-12-02 08:18 | XR ---
EXAMINATION TYPE: XR chest 2V DATE OF EXAM: 12/02/2023 COMPARISON: 11/30/2023 INDICATION: Short of breath TECHNIQUE: Frontal and lateral views of the chest are obtained. FINDINGS: The heart size is normal. The pulmonary vasculature is normal. The lungs are clear. IMPRESSION: 1. No acute pulmonary process.
[2023-12-02] MEDS: DILTIAZEM CD 180 MG CAP.ER.24H PO SCH (08:53)
--- NOTE | 2023-12-02 08:53 | CT ---
CTA CHEST EXAMINATION TYPE: CT chest angio for PE DATE OF EXAM: 12/01/2023 INDICATION: Rule out PE CT DLP: 881.2 mGycm, Automated exposure control for dose reduction was used. CONTRAST: Patient injected with 100ml mL of Isovue 370. COMPARISON: None TECHNIQUE: CT of the chest is performed on a spiral scan at 2 mm thick sections. Study is performed with intravenous contrast timed for evaluation for pulmonary embolism. This will limit additional po rtions of the evaluation. 3-D MIP images reconstructed by the technologist are reviewed on the compu ter in the coronal and sagittal planes. FINDINGS: No persistent filling defects are evident to suggest an acute pulmonary embolism. No mediastinal or hilar adenopathy enlarged by CT criteria is evident. The ascending aorta diameter at the level of the main pulmonary artery is 3.6 cm. The main pulmonary artery diameter at the bifur cation is 3.1 cm. Coronary artery calcification appears to be present. Lung windows are clear. No suspicious infiltrates or nodules. Limited CT section through the upper abdomen. Upper abdomen appears unremarkable. IMPRESSION: 1. No acute pulmonary embolism.
[2023-12-02 11:30] LABS: Glucose,Whole Blood 103 mg/dL (70-110)
--- NOTE | 2023-12-02 14:48 | P.PN ---
Subjective Progress Note Date: 12/02/23 Consult reason: congestive heart failure (Acute exacerbation) History of present illness: History of present illness: This is an 89-year-old female patient of Dr. Heredia with past medical history of coronary artery disease, hypertension, subclavian artery stenosis, hyperlipidemia, diabetes mellitus type 2, obstructive sleep apnea on CPAP. We have been asked to evaluate the patient for acute exacerbation of CHF. Patient is seen today in the emergency center waiting for a bed on the observation unit. Patient initially presented to [facility] for shortness of breath with weight gain and lower extremity edema. She states that she had been in contact with Dr. Heredia and he had increased her hydrochlorothiazide 2 weeks ago but she has not had any significant improvement and also feels like she is getting worse with shortness of breath. She states she has gained 11 pounds. At [facility], she was given IV Lasix and IV Solu-Medrol. Patient states that she did have a significant amount of urination and helped some with her breathing. She states she has a little bit of a cough. No fever or chills. Chest x-ray showed cardiomegaly and CHF. EKG was a sinus rhythm. EKG sinus rhythm CBC is unremarkable. Sodium 129. Potassium 3.6, BUN 15 creatinine 0.6. Blood sugar 210. Troponin negative x 3. proBNP 409. Home cardiac medications: Aspirin 81 mg daily, Catapres 0.1 mg twice daily, Cardizem ER 360 mg daily,, Zetia 10 mg daily, hydralazine 100 mg 3 times daily, hydrochlorothiazide 50 mg daily, Imdur 30 mg daily, losartan 100 mg daily, pravastatin 40 mg at bedtime Cardiac catheterization performed 02/02 2018 revealed calcified coronary arteries with mild disease in the LAD and RCA. Echocardiogram performed on 05/21/2022 revealed EF of 52%, mild to moderate TR, mild , mild to moderate MR, RVSP 53 mmHg. Lexiscan stress test performed 05/21/2022 revealed EF 58% and normal. 12/02 [facility] She states her breathing is better. She continues to have lower extremity edema but that improved. She has been on IV Lasix 60 mg twice daily and has been urinating frequently. Blood pressure is elevated this morning at 184/55. Heart rate is in the 60s. Telemetry has been sinus rhythm. Repeat blood work reveals sodium 135, potassium 3.8, BUN 25 creatinine 0.71. Echocardiogram reveals EF of 55 to 60%, technically difficult study for interpretation. Mild to moderate mitral rotation. Physical examination: Gen: This is a morbidly obese 89-year-old female appears to be in no acute distress VS: reviewed HEENT: Head is atraumatic, normocephalic. Pupils equal, round. Sclerae is anicteric. NECK: Supple. No JVD. . LUNGS: Diminished breath sounds. No intercostal retractions. HEART: Regular rate and rhythm. 2/6 sytolic murmur. ABDOMEN: Soft No tenderness. EXTREMITIES: 2+ pedal edema. No calf tenderness. NEUROLOGICAL: Patient is awake, alert and oriented x3. Assessment: Acute diastolic heart failure Hyponatremia History of coronary artery disease Hypertension Subclavian artery stenosis on medical management status post evaluation by Dr. Bustos Hyperlipidemia Diabetes mellitus type 2 Obstructive sleep apnea Valvular heart disease with mild AAS, mild to moderate MR, mild to moderate TR Plan: Continue patient's home cardiac medications Continue Lasix IV 60 mg twice daily Monitor SHELLY, daily weights, electrolytes and renal function Further recommendations to follow based upon clinical course Nurse practitioner note has been reviewed, I agree with documented findings and plan of care. Patient was seen and examined. Objective - Vital Signs Vital signs: Vital Signs Temp 97.8 F 12/02/23 07:00 Pulse 65 12/02/23 07:00 Resp 17 12/02/23 01:51 BP 184/55 12/02/23 07:00 Pulse Ox 98 12/02/23 07:00 FiO2 Intake & Output 12/01/23 12/02/23 12/02/23 18:59 06:59 18:59 Intake Total 118 Output Total 950 1950 Balance -950 -1950 118 Intake: Oral 118 Output: Urine 950 1950 Uretheral (Call) 950 1000 Other: Voiding Method Indwelling Catheter Indwelling Catheter - Labs CBC & Chem 7: 12/01/23 03:28 12/02/23 06:37 Labs: Abnormal Lab Results - Last 24 Hours (Table) 12/01/23 12/01/23 12/02/23 Range/Units 16:57 23:16 05:42 Sodium (137-145) mmol/L BUN (7-17) mg/dL Glucose (74-99) mg/dL POC Glucose (mg/dL) 218 H 164 H 159 H (70-110) mg/dL Calcium (8.4-10.2) mg/dL 12/02/23 Range/Units 06:37 Sodium 135 L (137-145) mmol/L BUN 25 H (7-17) mg/dL Glucose 132 H (74-99) mg/dL POC Glucose (mg/dL) (70-110) mg/dL Calcium 10.3 H (8.4-10.2) mg/dL
[2023-12-02 16:33] LABS: Glucose,Whole Blood 110 mg/dL (70-110)
--- NOTE | 2023-12-02 17:17 | P.PN ---
Progress Note - Text Progress Note Date: 12/02/23 Chief Complaint: Short of breath This is a pleasant 82-year-old patient, follows with Dr. Lottie Del Cid. Chronic stable medical conditions include diabetes, hypertension, hyperlipidemia, osteoarthritis, prior sleep apnea uses CPAP. Does use a cane and a walker at baseline. Patient is accompanied by her daughter and son in the ER. For 2 to 3 weeks patient been having episodes of feeling short of breath. Short-lived then she disappears. Last 2 days patient been having increasing shortness of breath. Slight headache. Edema. Does sleep sitting a bit upright. Feels flushed. Decreased appetite. No fever no chills. No change in bowel pattern. Initially presented to [facility]. [place] a possible CHF. Transferred down here. Patient follows with her toilet attendant Dr. Heredia. No cough or sputum. December 02: Sitting up in the chair. Breathing better. Daughter at the bedside. On IV Lasix 60 mg twice daily. Tolerating diet. PE was ruled out Active Medications Acetaminophen (Acetaminophen Tab 325 Mg Tab) 650 mg PO Q8H PRN PRN Reason: Pain Aspirin (Aspirin 81 Mg) 81 mg PO HS [facility] Last Admin: 12/01/23 20:55 Dose: 81 mg Calcium Carbonate/Glycine (Calcium Carbonate 500 Mg Chewable) 1,000 mg PO Q4HR PRN PRN Reason: Dyspepsia Clonidine (Clonidine Hcl 0.1 Mg Tab) 0.1 mg PO BID [facility] Last Admin: 12/02/23 08:11 Dose: 0.1 mg Dextrose/Water (Dextrose 50% Syringe 50 Ml) 25 ml IVP PER PROTOCOL PRN; Protocol PRN Reason: Hypoglycemia Dextrose/Water (Dextrose 50% Syringe 50 Ml) 50 ml IVP PER PROTOCOL PRN; Protocol PRN Reason: Hypoglycemia Diltiazem HCl (Diltiazem Cd 180 Mg Cap.Er.24h) 360 mg PO DAILY [facility] Last Admin: 12/02/23 08:53 Dose: 360 mg Ezetimibe (Ezetimibe 10 Mg Tab) 10 mg PO DAILY [facility] Last Admin: 12/02/23 08:11 Dose: 10 mg Enoxaparin Sodium (Enoxaparin 40 Mg/0.4 Ml Syringe) 40 mg SQ DAILY [facility] Last Admin: 12/02/23 08:11 Dose: 40 mg Furosemide (Furosemide 10 Mg/Ml 10 Ml Vial) 60 mg IV BID [facility] Last Admin: 12/02/23 08:11 Dose: 60 mg Hydralazine HCl (Hydralazine Hcl 50 Mg Tab) 100 mg PO TID [facility] Last Admin: 12/02/23 16:58 Dose: 100 mg Insulin Aspart (Insulin Aspart (For Pump) 100 Unit/Ml Vial) 0.01 unit SQ-PUMP AC-TID [facility] Last Admin: 12/02/23 12:30 Dose: 0.01 unit Isosorbide Mononitrate (Isosorbide Mononitrate Er 30 Mg Tab.Er.24h) 30 mg PO DAILY [facility] Last Admin: 12/02/23 08:11 Dose: 30 mg Lactulose (Lactulose 20 Gm/30 Ml Cup) 20 gm PO DAILY PRN PRN Reason: Constipation Lorazepam (Lorazepam 0.5 Mg Tab) 0.5 mg PO Q6HR PRN PRN Reason: Anxiety Losartan Potassium (Losartan 50 Mg Tab) 100 mg PO DAILY [facility] Last Admin: 12/02/23 08:11 Dose: 100 mg Melatonin (Melatonin 3 Mg Tablet) 3 mg PO HS PRN PRN Reason: Insomnia Naloxone HCl (Naloxone 0.4 Mg/Ml 1 Ml Vial) 0.2 mg IV Q2M PRN PRN Reason: Opioid Reversal Ondansetron HCl (Ondansetron 4 Mg/2 Ml Vial) 4 mg IVP Q8HR PRN PRN Reason: Nausea And Vomiting Pravastatin Sodium (Pravastatin Sodium 40 Mg Tab) 40 mg PO HS [facility] Last Admin: 12/01/23 20:55 Dose: 40 mg Social history: Lives alone. Does use a cane and a walker. No smoking no alcohol Physical examination: VITAL SIGNS: 98.6, 56, 16, 105 x 40, 95% on 2 L GENERAL: Sitting up in the chair, comfortable EYES: Pupils equal. Conjunctiva salazar l. HEENT: External appearance of nose and ears normal, oral cavity grossly normal. NECK: JVD unable to assist masses not palpable. HEART: First and second heart sounds are normal; no edema. LUNGS: Respiratory rate increased, decreased breath sounds. ABDOMEN: Soft, nontender, liver spleen not palpable, no masses palpable. PSYCH: Alert and oriented x3; mood and affect salazar l. MUSCULOSKELETAL:No Clubbing/cyanosis;muscles-grossly intact. OA INVESTIGATIONS, reviewed in the clinical context: December 02: Potassium 3.8 creatinine 0.71 December 01, 2023: White count 6.6 hemoglobin 15.8 platelets 191 sodium 129 potassium 3.6 BUN 15 creatinine 0.60 Troponin I 0.020, 0.021, 0.020. proBNP 409 EKG tracing personally reviewed by me-normal sinus rhythm. Nonspecific ST/T wave changes. 2D echocardiogram moderate LVH. EF 55-60%. Mild to moderate-MR. Assessment plan: -Possible acute congestive heart failure exacerbation. From diastolic dysfunction EF 55 to 60% IV Lasix 60 mg twice daily. Telemetry. Cardiology following -Essential hypertension Catapres 0.1 mg twice daily hydrochlorothiazide hydralazine 100 mg 3 times daily. Cardizem ER. Losartan 100 mg a day -Hyperlipidemia Pravachol 40 mg nightly. 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 Continue IV Lasix per cardiology. Past Medical History Past Medical History: Diabetes Mellitus, Hyperlipidemia, Hypertension, Osteoarthritis (OA), Sleep Apnea/CPAP/BIPAP Additional Past Medical History / Comment(s): pt has cpap History of Any Multi-Drug Resistant Organisms: None Reported Past Surgical History: Cholecystectomy, Heart Catheterization, Joint Replacement Additional Past Surgical History / Comment(s): yary knee replacement, cytocele and rectocele repair, yary carpal tunnel, rt shoulder surgery Past Anesthesia/Blood Transfusion Reactions: Motion Sickness, Postoperative Nausea & Vomiting (PONV) Past Psychological History: No Psychological Hx Reported Past Alcohol Use History: None Reported Past Drug Use History: None Reported
[2023-12-02 20:31] LABS: Glucose,Whole Blood 130 mg/dL (70-110)
[2023-12-02] MEDS: ASPIRIN 81 MG PO SCH (20:53)
[2023-12-02] MEDS: PRAVASTATIN SODIUM 40 MG TAB PO SCH (20:53)
[2023-12-03 05:46] LABS: Glucose,Whole Blood 99 mg/dL (70-110)
[2023-12-03] MEDS: INSPUCOR MISCELLANE PRN ×2 (07:30→12:23)
[2023-12-03] MEDS ORDERED: INSULIN ASPART (NovoLOG) 100 UNIT/ML VIAL SQ PRN ×3 (07:52→12:28)
[2023-12-03] MEDS: Insulin Aspart (For Pump) 100 UNIT/ML VIAL SQ-PUMP SCH ×2 (07:52→12:24)
[2023-12-03 09:27] LABS: BUN/Creat Ratio 30.11 Ratio (12.00-20.00); Blood Urea Nitrogen 27.1 mg/dL (9.0-27.0); Calcium 10.4 mg/dL (8.7-10.3); Carbon Dioxide 27.2 mmol/L (21.6-31.8); Chloride 97 mmol/L (96-109); Glucose 107 mg/dL (70-110); Potassium 3.7 mmol/L (3.5-5.5); Sodium 136 mmol/L (135-145)
[2023-12-03] MEDS: LOSARTAN 50 MG TAB PO SCH (09:38)
[2023-12-03] MEDS: EZETIMIBE 10 MG TAB PO SCH (09:38)
[2023-12-03] MEDS: ISOSORBIDE MONONITRATE ER 30 MG TAB.ER.24H PO SCH (09:38)
[2023-12-03] MEDS: hydrALAZINE HCL 50 MG TAB PO SCH ×3 (09:38→20:48)
[2023-12-03] MEDS: FUROSEMIDE 10 MG/ML 10 ML VIAL IV SCH ×2 (09:38→20:49)
[2023-12-03] MEDS: ENOXAPARIN 40 MG/0.4 ML SYRINGE SQ SCH (09:38)
[2023-12-03] MEDS: cloNIDine HCL 0.1 MG TAB PO SCH ×2 (09:38→20:49)
[2023-12-03] MEDS: DILTIAZEM CD 180 MG CAP.ER.24H PO SCH (09:39)
--- NOTE | 2023-12-03 11:37 | P.PN ---
Subjective Progress Note Date: 12/03/23 Consult reason: congestive heart failure (Acute exacerbation) History of present illness: History of present illness: This is an 89-year-old female patient of Dr. Heredia with past medical history of coronary artery disease, hypertension, subclavian artery stenosis, hyperlipidemia, diabetes mellitus type 2, obstructive sleep apnea on CPAP. We have been asked to evaluate the patient for acute exacerbation of CHF. Patient is seen today in the emergency center waiting for a bed on the observation unit. Patient initially presented to [facility] for shortness of breath with weight gain and lower extremity edema. She states that she had been in contact with Dr. Heredia and he had increased her hydrochlorothiazide 2 weeks ago but she has not had any significant improvement and also feels like she is getting worse with shortness of breath. She states she has gained 11 pounds. At [facility], she was given IV Lasix and IV Solu-Medrol. Patient states that she did have a significant amount of urination and helped some with her breathing. She states she has a little bit of a cough. No fever or chills. Chest x-ray showed cardiomegaly and CHF. EKG was a sinus rhythm. EKG sinus rhythm CBC is unremarkable. Sodium 129. Potassium 3.6, BUN 15 creatinine 0.6. Blood sugar 210. Troponin negative x 3. proBNP 409. Home cardiac medications: Aspirin 81 mg daily, Catapres 0.1 mg twice daily, Cardizem ER 360 mg daily,, Zetia 10 mg daily, hydralazine 100 mg 3 times daily, hydrochlorothiazide 50 mg daily, Imdur 30 mg daily, losartan 100 mg daily, pravastatin 40 mg at bedtime Cardiac catheterization performed 02/02 2018 revealed calcified coronary arteries with mild disease in the LAD and RCA. Echocardiogram performed on 05/21/2022 revealed EF of 52%, mild to moderate TR, mild , mild to moderate MR, RVSP 53 mmHg. Lexiscan stress test performed 05/21/2022 revealed EF 58% and normal. 12/02 [facility] She states her breathing is better. She continues to have lower extremity edema but that improved. She has been on IV Lasix 60 mg twice daily and has been urinating frequently. Blood pressure is elevated this morning at 184/55. Heart rate is in the 60s. Telemetry has been sinus rhythm. Repeat blood work reveals sodium 135, potassium 3.8, BUN 25 creatinine 0.71. Echocardiogram reveals EF of 55 to 60%, technically difficult study for interpretation. Mild to moderate mitral rotation. 12/03 Patient states that her breathing is better today. She states she had some naus ea and dizziness earlier today. Breath sounds sound improved. Blood pressure 136/62, heart rate in the 60s. Pulse ox 93% on room air. Repeat blood work reveals sodium 136, potassium 3.7, creatinine 0.9, BUN 27. Patient has been maintained on IV Lasix 60 mg twice daily. Physical examination: Gen: This is a morbidly obese 89-year-old female appears to be in no acute distress VS: reviewed HEENT: Head is atraumatic, normocephalic. Pupils equal, round. Sclerae is anicteric. NECK: Supple. No JVD. . LUNGS: Diminished breath sounds. No intercostal retractions. HEART: Regular rate and rhythm. 2/6 sytolic murmur. ABDOMEN: Soft No tenderness. EXTREMITIES: 2+ pedal edema. No calf tenderness. NEUROLOGICAL: Patient is awake, alert and oriented x3. Assessment: Acute diastolic heart failure Hyponatremia History of coronary artery disease Hypertension Subclavian artery stenosis on medical management status post evaluation by Dr. Bustos Hyperlipidemia Diabetes mellitus type 2 Obstructive sleep apnea Valvular heart disease with mild , mild to moderate MR, mild to moderate TR Plan: Continue patient's home cardiac medications Continue Lasix IV 60 mg twice daily for 1 more day and plan for discharge on Wednesday Monitor SHELLY, daily weights, electrolytes and renal function At the time of discharge, patient will follow-up with Dr. Heredia in the office in 1-2 weeks. Nurse practitioner note has been reviewed, I agree with documented findings and plan of care. Patient was seen and examined. Objective - Vital Signs Vital signs: Vital Signs Temp 98.2 F 12/03/23 01:20 Pulse 72 12/03/23 01:20 Resp 18 12/03/23 01:20 BP 130/60 12/03/23 01:20 Pulse Ox 96 12/03/23 01:20 FiO2 Intake & Output 12/02/23 12/03/23 12/03/23 18:59 06:59 18:59 Intake Total 236 1350 Output Total 1700 600 Balance -1464 750 Weight 116.9 kg Intake: Oral 236 1350 Output: Urine 1700 600 Other: Voiding Method Indwelling Catheter # Voids 1 1 - Labs CBC & Chem 7: 12/01/23 03:28 12/03/23 06:09 Labs: Abnormal Lab Results - Last 24 Hours (Table) 12/02/23 Range/Units 20:30 POC Glucose (mg/dL) 130 H (70-110) mg/dL
[2023-12-03 12:06] LABS: Glucose,Whole Blood 149 mg/dL (70-110)
[2023-12-03] MEDS ORDERED: INSPUCOR MISCELLANE PRN (12:28)
[2023-12-03] MEDS ORDERED: INSULIN PUMP BASAL RATES 1 EACH MISC MISCELLANE PRN (12:28)
[2023-12-03] MEDS ORDERED: INSULIN PUMP BASAL RATES 1 EACH MISC MISCELLANE SCH (12:30)
--- NOTE | 2023-12-03 15:46 | P.PN ---
Progress Note - Text Progress Note Date: 12/03/23 Chief Complaint: Short of breath This is a pleasant 82-year-old patient, follows with Dr. Lottie Del Cid. Chronic stable medical conditions include diabetes, hypertension, hyperlipidemia, osteoarthritis, prior sleep apnea uses CPAP. Does use a cane and a walker at baseline. Patient is accompanied by her daughter and son in the ER. For 2 to 3 weeks patient been having episodes of feeling short of breath. Short-lived then she disappears. Last 2 days patient been having increasing shortness of breath. Slight headache. Edema. Does sleep sitting a bit upright. Feels flushed. Decreased appetite. No fever no chills. No change in bowel pattern. Initially presented to [facility] [place] a possible CHF. Transferred down here. Patient follows with her freight broker Dr. Heredia. No cough or sputum. December 02: Sitting up in the chair. Breathing better. Daughter at the bedside. On IV Lasix 60 mg twice daily. Tolerating diet. PE was ruled out December 03: Patient feels she has not felt like this for a long time. Doing much better.. Son at the bedside. Per cardiology 1 more day of IV Lasix. Active Medications Acetaminophen (Acetaminophen Tab 325 Mg Tab) 650 mg PO Q8H PRN PRN Reason: Pain Aspirin (Aspirin 81 Mg) 81 mg PO HS [facility] Last Admin: 12/02/23 20:53 Dose: 81 mg Calcium Carbonate/Glycine (Calcium Carbonate 500 Mg Chewable) 1,000 mg PO Q4HR PRN PRN Reason: Dyspepsia Clonidine (Clonidine Hcl 0.1 Mg Tab) 0.1 mg PO BID [facility] Last Admin: 12/03/23 09:38 Dose: 0.1 mg Dextrose/Water (Dextrose 50% Syringe 50 Ml) 25 ml IVP PER PROTOCOL PRN; Protocol PRN Reason: Hypoglycemia Dextrose/Water (Dextrose 50% Syringe 50 Ml) 50 ml IVP PER PROTOCOL PRN; Protocol PRN Reason: Hypoglycemia Diltiazem HCl (Diltiazem Cd 180 Mg Cap.Er.24h) 360 mg PO DAILY [facility] Last Admin: 12/03/23 09:39 Dose: 360 mg Ezetimibe (Ezetimibe 10 Mg Tab) 10 mg PO DAILY [facility] Last Admin: 12/03/23 09:38 Dose: 10 mg Enoxaparin Sodium (Enoxaparin 40 Mg/0.4 Ml Syringe) 40 mg SQ DAILY [facility] Last Admin: 12/03/23 09:38 Dose: 40 mg Furosemide (Furosemide 10 Mg/Ml 10 Ml Vial) 60 mg IV BID [facility] Last Admin: 12/03/23 09:38 Dose: 60 mg Hydralazine HCl (Hydralazine Hcl 50 Mg Tab) 100 mg PO TID [facility] Last Admin: 12/03/23 09:38 Dose: 100 mg Insulin Aspart (Insulin Aspart (Novolog) 100 Unit/Ml Vial) 0 unit SQ DAILY PRN PRN Reason: Insulin Pump Replacement Insulin Aspart (Insulin Aspart (Novolog) 100 Unit/Ml Vial) 0 unit SQ DAILY PRN PRN Reason: Insulin Pump Replacement Insulin Aspart (Insulin Aspart (Novolog) 100 Unit/Ml Vial) 0 unit SQ DAILY PRN PRN Reason: Insulin Pump Replacement Isosorbide Mononitrate (Isosorbide Mononitrate Er 30 Mg Tab.Er.24h) 30 mg PO DAILY [facility] Last Admin: 12/03/23 09:38 Dose: 30 mg Lactulose (Lactulose 20 Gm/30 Ml Cup) 20 gm PO DAILY PRN PRN Reason: Constipation Lorazepam (Lorazepam 0.5 Mg Tab) 0.5 mg PO Q6HR PRN PRN Reason: Anxiety Losartan Potassium (Losartan 50 Mg Tab) 100 mg PO DAILY [facility] Last Admin: 12/03/23 09:38 Dose: 100 mg Melatonin (Melatonin 3 Mg Tablet) 3 mg PO HS PRN PRN Reason: Insomnia Miscellaneous Information (Insulin Pump Basal Rates 1 Each Misc) 1 each MISCELLANE Q6HR PRN; Protocol PRN Reason: Blood Sugar - High Miscellaneous Information (Insulin Pump Correction Bolus 1 Unit Misc) 0 unit MISCELLANE ACHS PRN; Protocol PRN Reason: Blood Sugar - High Naloxone HCl (Naloxone 0.4 Mg/Ml 1 Ml Vial) 0.2 mg IV Q2M PRN PRN Reason: Opioid Reversal Ondansetron HCl (Ondansetron 4 Mg/2 Ml Vial) 4 mg IVP Q8HR PRN PRN Reason: Nausea And Vomiting Pravastatin Sodium (Pravastatin Sodium 40 Mg Tab) 40 mg PO HS [facility] Last Admin: 12/02/23 20:53 Dose: 40 mg Social history: Lives alone. Does use a cane and a walker. No smoking no alcohol Physical examination: VITAL SIGNS: 97.9, 76, 19, 1 one 6 x 61, 90% room air GENERAL: Sitting up in the chair, comfortable EYES: Pupils equal. Conjunctiva salazar l. HEENT: External appearance of nose and ears normal, oral cavity grossly normal. NECK: JVD unable to assist masses not palpable. HEART: First and second heart sounds are normal; no edema. LUNGS: Respiratory rate increased, decreased breath sounds. ABDOMEN: Soft, nontender, liver spleen not palpable, no masses palpable. PSYCH: Alert and oriented x3; mood and affect salazar l. MUSCULOSKELETAL:No Clubbing/cyanosis;muscles-grossly intact. OA INVESTIGATIONS, reviewed in the clinical context: December 03: Potassium 3.7 creatinine 0.9 December 02: Potassium 3.8 creatinine 0.71 December 01, 2023: White count 6.6 hemoglobin 15.8 platelets 191 sodium 129 potassium 3.6 BUN 15 creatinine 0.60 Troponin I 0.020, 0.021, 0.020. proBNP 409 EKG tracing personally reviewed by me-normal sinus rhythm. Nonspecific ST/T wave changes. 2D echocardiogram moderate LVH. EF 55-60%. Mild to moderate-MR. Assessment plan: -Possible acute congestive heart failure exacerbation. From diastolic dysfunction EF 55 to 60%: Improving IV Lasix 60 mg twice daily. Telemetry. Cardiology following -Essential hypertension Catapres 0.1 mg twice daily hydrochlorothiazide hydralazine 100 mg 3 times daily. Cardizem ER. Losartan 100 mg a day -Hyperlipidemia Pravachol 40 mg nightly. 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 Hopefully home tomorrow. Past Medical History Past Medical History: Diabetes Mellitus, Hyperlipidemia, Hypertension, Osteoarthritis (OA), Sleep Apnea/CPAP/BIPAP Additional Past Medical History / Comment(s): pt has cpap History of Any Multi-Drug Resistant Organisms: None Reported Past Surgical History: Cholecystectomy, Heart Catheterization, Joint Replacement Additional Past Surgical History / Comment(s): yary knee replacement, cytocele and rectocele repair, yary carpal tunnel, rt shoulder surgery Past Anesthesia/Blood Transfusion Reactions: Motion Sickness, Postoperative Nausea & Vomiting (PONV) Past Psychological History: No Psychological Hx Reported Past Alcohol Use History: None Reported Past Drug Use History: None Reported
[2023-12-03 17:11] LABS: Glucose,Whole Blood 159 mg/dL (70-110)
[2023-12-03 19:55] LABS: Glucose,Whole Blood 213 mg/dL (70-110)
[2023-12-03] MEDS: PRAVASTATIN SODIUM 40 MG TAB PO SCH (20:48)
[2023-12-03] MEDS: ASPIRIN 81 MG PO SCH (20:49)
[2023-12-04 05:53] LABS: Glucose,Whole Blood 136 mg/dL (70-110)
[2023-12-04 06:43] LABS: African American GFR (CKD) 80 (>60 ml/min/1.73 sqM); Anion Gap 5 mmol/L; Blood Urea Nitrogen 29 mg/dL (7-17); Calcium 9.9 mg/dL (8.4-10.2); Carbon Dioxide 30 mmol/L (22-30); Chloride 99 mmol/L (98-107); Glucose 140 mg/dL (74-99); Non-African American GFR(CKD) 69 (>60 ml/min/1.73 sqM); Potassium 3.7 mmol/L (3.5-5.1); Sodium 134 mmol/L (137-145)
[2023-12-04] MEDS: FUROSEMIDE 10 MG/ML 10 ML VIAL IV SCH (08:13)
[2023-12-04] MEDS: cloNIDine HCL 0.1 MG TAB PO SCH (08:14)
[2023-12-04] MEDS: EZETIMIBE 10 MG TAB PO SCH (08:14)
[2023-12-04] MEDS: DILTIAZEM CD 180 MG CAP.ER.24H PO SCH (08:14)
[2023-12-04] MEDS: LOSARTAN 50 MG TAB PO SCH (08:14)
[2023-12-04] MEDS: hydrALAZINE HCL 50 MG TAB PO SCH (08:14)
[2023-12-04] MEDS: ISOSORBIDE MONONITRATE ER 30 MG TAB.ER.24H PO SCH (08:14)
[2023-12-04] MEDS: ENOXAPARIN 40 MG/0.4 ML SYRINGE SQ SCH (08:14)
[2023-12-04 09:29] VITALS: PULSE 66; RESP 17; TEMP 98
[2023-12-04] MEDS ORDERED: cloNIDine HCL 0.1 MG TAB PO STA (09:49)
--- NOTE | 2023-12-04 10:04 | P.PN ---
Subjective Progress Note Date: 12/04/23 Consult reason: congestive heart failure (Acute exacerbation) History of present illness: History of present illness: This is an 89-year-old female patient of Dr. Heredia with past medical history of coronary artery disease, hypertension, subclavian artery stenosis, hyperlipidemia, diabetes mellitus type 2, obstructive sleep apnea on CPAP. We have been asked to evaluate the patient for acute exacerbation of CHF. Patient is seen today in the emergency center waiting for a bed on the observation unit. Patient initially presented to [facility] for shortness of breath with weight gain and lower extremity edema. She states that she had been in contact with Dr. Heredia and he had increased her hydrochlorothiazide 2 weeks ago but she has not had any significant improvement and also feels like she is getting worse with shortness of breath. She states she has gained 11 pounds. At [facility], she was given IV Lasix and IV Solu-Medrol. Patient states that she did have a significant amount of urination and helped some with her breathing. She states she has a little bit of a cough. No fever or chills. Chest x-ray showed cardiomegaly and CHF. EKG was a sinus rhythm. EKG sinus rhythm CBC is unremarkable. Sodium 129. Potassium 3.6, BUN 15 creatinine 0.6. Blood sugar 210. Troponin negative x 3. proBNP 409. Home cardiac medications: Aspirin 81 mg daily, Catapres 0.1 mg twice daily, Cardizem ER 360 mg daily,, Zetia 10 mg daily, hydralazine 100 mg 3 times daily, hydrochlorothiazide 50 mg daily, Imdur 30 mg daily, losartan 100 mg daily, pravastatin 40 mg at bedtime Cardiac catheterization performed 02/02 2018 revealed calcified coronary arteries with mild disease in the LAD and RCA. Echocardiogram performed on 05/21/2022 revealed EF of 52%, mild to moderate TR, mild , mild to moderate MR, RVSP 53 mmHg. Lexiscan stress test performed 05/21/2022 revealed EF 58% and normal. 12/02 [facility] She states her breathing is better. She continues to have lower extremity edema but that improved. She has been on IV Lasix 60 mg twice daily and has been urinating frequently. Blood pressure is elevated this morning at 184/55. Heart rate is in the 60s. Telemetry has been sinus rhythm. Repeat blood work reveals sodium 135, potassium 3.8, BUN 25 creatinine 0.71. Echocardiogram reveals EF of 55 to 60%, technically difficult study for interpretation. Mild to moderate mitral rotation. 12/03 Patient states that her breathing is better today. She states she had some naus ea and dizziness earlier today. Breath sounds sound improved. Blood pressure 136/62, heart rate in the 60s. Pulse ox 93% on room air. Repeat blood work reveals sodium 136, potassium 3.7, creatinine 0.9, BUN 27. Patient has been maintained on IV Lasix 60 mg twice daily. 12/04 Patient is seen today in follow-up. She feels that her legs are about back to normal. Breathing is improved. She has been continued on IV Lasix 60 mg twice daily. Systolic blood pressure [id number]. Heart rate is in the 60s and 70s. Repeat blood work reveals sodium 134, potassium 3.7, BUN 29 and creatinine 0.87. Physical examination: Gen: This is a morbidly obese 89-year-old female appears to be in no acute dist ress VS: reviewed HEENT: Head is atraumatic, normocephalic. Pupils equal, round. Sclerae is anicteric. LUNGS: CLear breath sounds. No intercostal retractions. HEART: Regular rate and rhythm. 2/6 sytolic murmur. EXTREMITIES: 1+ pedal edema. No calf tenderness. NEUROLOGICAL: Patient is awake, alert and oriented x3. Assessment: Acute diastolic heart failure Hyponatremia History of coronary artery disease Hypertension Subclavian artery stenosis on medical management status post evaluation by Dr. Bustos Hyperlipidemia Diabetes mellitus type 2 Obstructive sleep apnea Valvular heart disease with mild , mild to moderate MR, mild to moderate TR Plan: Continue patient's home cardiac medications Transition IV Lasix to oral 60 mg daily for home Increase clonidine to 0.2 mg twice daily for better blood pressure control Patient is cleared from cardiology for discharge. She may follow-up with Dr. Heredia in the office in 1-2 weeks. Nurse practitioner note has been reviewed, I agree with documented findings and plan of care. Patient was seen and examined. Objective - Vital Signs Vital signs: Vital Signs Temp 98.0 F 12/04/23 07:36 Pulse 66 12/04/23 07:36 Resp 17 12/04/23 07:36 BP 180/75 12/04/23 07:36 Pulse Ox 94 L 12/04/23 07:36 FiO2 Intake & Output 12/03/23 12/04/23 12/04/23 18:59 06:59 18:59 Intake Total 240 Output Total 600 1300 300 Balance -600 -1060 -300 Weight 116.9 kg Intake: Oral 240 Output: Urine 600 1300 300 Other: Voiding Method Indwelling Catheter # Voids 2 2 # Bowel Movements 1 - Labs CBC & Chem 7: 12/01/23 03:28 12/04/23 04:46 Labs: Abnormal Lab Results - Last 24 Hours (Table) 12/03/23 12/03/23 12/03/23 Range/Units 12:05 17:10 19:54 Sodium (137-145) mmol/L BUN (7-17) mg/dL Glucose (74-99) mg/dL POC Glucose (mg/dL) 149 H 159 H 213 H (70-110) mg/dL 12/04/23 12/04/23 Range/Units 04:46 05:52 Sodium 134 L (137-145) mmol/L BUN 29 H (7-17) mg/dL Glucose 140 H (74-99) mg/dL POC Glucose (mg/dL) 136 H (70-110) mg/dL
[2023-12-04 10:20] VITALS: BP 141/57
[2023-12-04 11:39] LABS: Glucose,Whole Blood 161 mg/dL (70-110)
--- NOTE | 2023-12-04 14:32 | P.DS ---
Providers Date of admission: 12/01/23 09:30 Expected date of discharge: 12/04/23 Attending physician: Norberto Stevens Consults: 11/30/23 22:42 Consult Physician Urgent Consulting Provider: [facility] Consult Reason/Comments: aechf Do you want consulting provider notified?: Yes Primary care physician: Lottie Del [facility] Course: Chief Complaint: Short of breath This is a pleasant 82-year-old patient, follows with Dr. Lottie Del Cid. Chronic stable medical conditions include diabetes, hypertension, hyperlipidemia, osteoarthritis, prior sleep apnea uses CPAP. Does use a cane and a walker at baseline. Patient is accompanied by her daughter and son in the ER. For 2 to 3 weeks patient been having episodes of feeling short of breath. Short-lived then she disappears. Last 2 days patient been having increasing shortness of breath. Slight headache. Edema. Does sleep sitting a bit upright. Feels flushed. Decreased appetite. No fever no chills. No change in bowel pattern. Initially presented to [facility]. [place] a possible CHF. Transferred down here. 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 No cough or sputum. December 02: Sitting up in the chair. Breathing better. Daughter at the bedside. On IV Lasix 60 mg twice daily. Tolerating diet. PE was ruled out December 03: Patient feels she has not felt like this for a long time. Doing much better.. Son at the bedside. Per cardiology 1 more day of IV Lasix. December 04: Stable. Family is at bedside. Cardiology switch the patient over to oral Lasix. Blood pressure, Catapres increased. Questions answered. Discussion and discharge planning more than 35 minutes Social history: Lives alone. Does use a cane and a walker. No smoking no alcohol Physical examination: VITAL SIGNS: 98, 66, 17, 141/57, 94% room air GENERAL: Sitting up in the chair, comfortable EYES: Pupils equal. Conjunctiva salazar l. HEENT: External appearance of nose and ears normal, oral cavity grossly normal. NECK: JVD unable to assist masses not palpable. HEART: First and second heart sounds are normal; no edema. LUNGS: Respiratory rate increased, decreased breath sounds. ABDOMEN: Soft, nontender, liver spleen not palpable, no masses palpable. PSYCH: Alert and oriented x3; mood and affect salazar l. MUSCULOSKELETAL:No Clubbing/cyanosis;muscles-grossly intact. OA INVESTIGATIONS, reviewed in the clinical context: December 04: Potassium 3.7 creatinine 0.81 December 01, 2023: White count 6.6 hemoglobin 15.8 platelets 191 sodium 129 potassium 3.6 BUN 15 creatinine 0.60 Troponin I 0.020, 0.021, 0.020. proBNP 409 EKG tracing personally reviewed by me-normal sinus rhythm. Nonspecific ST/T wave changes. 2D echocardiogram moderate LVH. EF 55-60%. Mild to moderate-MR. Assessment plan: -Possible acute congestive heart failure exacerbation. From diastolic dysfunction EF 55 to 60%: Better IV Lasix 60 mg twice daily. Telemetry. Cardiology following Discharged on Lasix 60 mg daily -Essential hypertension: Uncontrolled Increase Catapres 0.2 mg twice daily hydrochlorothiazide hydralazine 100 mg 3 times daily. Cardizem ER. Losartan 100 mg a day -Hyperlipidemia Pravachol 40 mg nightly. 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 -DO NOT RESUSCITATE Disposition: Home Past Medical History Past Medical History: Diabetes Mellitus, Hyperlipidemia, Hypertension, Osteoarthritis (OA), Sleep Apnea/CPAP/BIPAP Additional Past Medical History / Comment(s): pt has cpap History of Any Multi-Drug Resistant Organisms: None Reported Past Surgical History: Cholecystectomy, Heart Catheterization, Joint Replacement Additional Past Surgical History / Comment(s): yary knee replacement, cytocele and rectocele repair, yary carpal tunnel, rt shoulder surgery Past Anesthesia/Blood Transfusion Reactions: Motion Sickness, Postoperative Nausea & Vomiting (PONV) Past Psychological History: No Psychological Hx Reported Past Alcohol Use History: None Reported Past Drug Use History: None Reported Plan - Discharge Summary New Discharge Prescriptions: New cloNIDine HCL [Catapres] 0.2 mg PO BID #60 tablet Furosemide [Lasix] 60 mg PO DAILY #50 tablet Continue Pravastatin Sodium [Pravachol] 40 mg PO HS Isosorbide Mononitrate ER [Imdur] 30 mg PO DAILY Ezetimibe 10 mg PO DAILY dilTIAZem HCL [dilTIAZem HCL 24Hr ER (LA)] 360 mg PO DAILY Insulin Aspart (For Pump) [NovoLOG (For Pump)] 0.01 unit SQ-PUMP CONTINUOUS Acetaminophen [Tylenol 8 Hour] 650 mg PO Q8H PRN PRN Reason: Pain Aspirin EC [Ecotrin Low Dose] 81 mg PO HS hydrALAZINE HCL [Apresoline] 100 mg PO TID Losartan Potassium 100 mg PO DAILY Discontinued cloNIDine HCL [Catapres] 0.1 mg PO BID hydroCHLOROthiazide [Hydrodiuril] 50 mg PO DAILY Discharge Medication List Ezetimibe 10 mg PO DAILY 01/31/18 [History] Insulin Aspart (For Pump) [NovoLOG (For Pump)] 0.01 unit SQ-PUMP CONTINUOUS 01/31/18 [History] Isosorbide Mononitrate ER [Imdur] 30 mg PO DAILY 01/31/18 [History] Pravastatin Sodium [Pravachol] 40 mg PO HS 01/31/18 [History] dilTIAZem HCL [dilTIAZem HCL 24Hr ER (LA)] 360 mg PO DAILY 01/31/18 [History] Acetaminophen [Tylenol 8 Hour] 650 mg PO Q8H PRN 11/30/23 [History] Aspirin EC [Ecotrin Low Dose] 81 mg PO HS 11/30/23 [History] Losartan Potassium 100 mg PO DAILY 11/30/23 [History] hydrALAZINE HCL [Apresoline] 100 mg PO TID 11/30/23 [History] Furosemide [Lasix] 60 mg PO DAILY #50 tablet 12/04/23 [Rx] cloNIDine HCL [Catapres] 0.2 mg PO BID #60 tablet 12/04/23 [Rx] Follow up Appointment(s)/Referral(s): cardiology, [Other] - 2 Weeks [facility], [NON-STAFF] - 1-2 Days Lottie Del Cid MD [Primary Care Provider] - 1-2 days (Office is closed at time of discharge. Please call for follow-up appointment.)
[2023-12-04] MEDS ORDERED: cloNIDine HCL 0.1 MG TAB PO SCH (21:00)
[2023-12-05] MEDS ORDERED: FUROSEMIDE 20 MG TAB PO SCH (09:00)
--- NOTE | 2023-12-10 09:53 | CDI ---
Documentation Clarification Form Date: 12/10/2023 09:45:06 AM From: Dejah James Phone: Admit Date: 12/01/2023 09:30:00 AM Patient Name: Reba Gilman Visit Number: [id number] Discharge Date: 12/04/2023 03:15:00 PM ATTENTION: The Clinical Documentation Specialists (CDI) and [facility] Coding Staff appreciate your assistance in clarifying documentation. Please respond to the clarification below the line at the bottom and electronically sign. The CDI & [facility] Coding staff will review the response and follow-up if needed. Please note: Queries are made part of the Legal Health Record. If you have any questions, please contact the author of this message via ITS. Dr. 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 Please clarify if there is an additional diagnosis and/or clinical significance related to this result. History/Risk Factors: 82yo F, ADHF, HTN, HLD, morbid obesity, CAD, , MR, TR Clinical indicators: Glucose: 11/30 & 183- 210 12/02 132- 218 12/03 130 12/04 136- 213 Treatment: Insulin Aspart (ForPump) [Novolog 0.01 unit SQ-continuous Is there an additional diagnosis and/or clinical significance related to the above diagnostic/radiology result? [ ] IDDMII with hyperglycemia [ + ] Result is not clinically significant (no additional diagnosis) [ ] Other, please specify [ ] Unable to determine (Template Last Reviewed: December 2020) MTDD
== END 2023-12-04 15:15 | disposition home health service (06) | DRG 291 ==
LOC: EC 20:48 → 6NMEDSUR 22:44 → OBSVTOIN 12-01 09:30 → 6NMEDSUR 12-01 15:17 → 4SSUR 12-01 19:10
PROVIDERS: ADMIT Hospitalist; ATTEND Hospitalist
DX: I11.0 Hypertensive heart disease with heart failure (principal); I50.31 Acute diastolic (congestive) heart failure; E87.1 Hypo-osmolality and hyponatremia; Z68.41 Body mass index [BMI] 40.0-44.9, adult; E66.01 Morbid (severe) obesity due to excess calories; E11.9 Type 2 diabetes mellitus without complications; I70.8 Atherosclerosis of other arteries; I08.3 Combined rheumatic disorders of mitral, aortic and tricuspid valves; E78.5 Hyperlipidemia, unspecified; G47.33 Obstructive sleep apnea (adult) (pediatric); M19.90 Unspecified osteoarthritis, unspecified site; I25.10 Atherosclerotic heart disease of native coronary artery without angina pectoris; R26.9 Unspecified abnormalities of gait and mobility; Z66 Do not resuscitate; Z96.653 Presence of artificial knee joint, bilateral; Z96.41 Presence of insulin pump (external) (internal); Z79.4 Long term (current) use of insulin; Z79.899 Other long term (current) drug therapy; Z79.82 Long term (current) use of aspirin; Z88.0 Allergy status to penicillin; Z88.8 Allergy status to other drugs, medicaments and biological substances
CPT/HCPCS: 36415; 71046; 71275; 80048; 80053; 83735; 83880; 84484; 85025; 93005; 93306; 96372; 96374; 96376; 99285